=== PATIENT | female | born 1950 | race Caucasian/White ===

== ENCOUNTER 2016-12-19 17:10 | Emergency (ER) | payer OTHER, BC ==
[~2016-12-19] VITALS: Ht 170.2 cm; Wt 94.1 kg
[~2016-12-19 17:10] MED LIST: ALLEGRA; ASACOL400 MG PO; BENICAR20 MG PO; CELEBREX200 MG PO; CLONAZEPAM; EFFEXOR XR150 MG PO; HYDROCHLOROTH12.5 M1 PO; HYDROCODONE APAP; LIPITOR20 MG PO; NEXIUM40 MG PO; SINGULAIR10 MG PO
[2016-12-19 17:45] LABS: HEMATOCRIT 49.8 % (36.0-46.0); MCHC 33.3 G/DL (30.0-36.0); MCV 92.9 FL (83-99); MEAN PLAT.VOLUME 11.2 uM^3 (9.5-12.4); PLATELET COUNT 324 K/uL (156-360); RBC DIS.WIDTH-CV 13.4 % (11.8-14.6); RBC DIS.WIDTH-SD 46.3 % (39-53); RED BLOOD COUNT 5.36 M/uL (3.80-5.20); WHITE BLOOD COUNT 15.5 K/uL (4.1-10.2)
[2016-12-19 17:57] LABS: CHLORIDE 105 mEq/L (99-109); POTASSIUM 3.9 mEq/L (3.7-5.4); SODIUM 141 mEq/L (136-147)
[2016-12-19 17:58] LABS: GLUCOSE 121 mg/dL (70-99)
[2016-12-19 18:00] LABS: ANION GAP 12 MEQ/L (2-14)
[2016-12-19 18:02] LABS: GFR ESTIMATE (CALCULATED) > 59 mL/min/
[2016-12-19 18:03] LABS: UREA NITROGEN (BUN) 12 mg/dL (9-23)
[2016-12-19 18:09] LABS: TROP-I INTERPRETATION NEGATIVE; TROPONIN-I < 0.01 ng/mL (0.0-0.30)
[2016-12-19] MEDS ORDERED: PREDNISONE20 MG PO (19:27)
[2016-12-19] MEDS ORDERED: VENTOLIN HFA18 GM IH (19:27)
[2016-12-19] MEDS ORDERED: ZITHROMAX Z-PA250 MG PO (19:27)
[2016-12-19 20:01] VITALS: BP 158/80
== END 2016-12-19 20:03 | disposition home or self-care (01) ==
LOC: EME 17:10
DX: J06.9 Acute upper respiratory infection, unspecified (principal); J18.9 Pneumonia, unspecified organism; M79.7 Fibromyalgia; Z88.6 Allergy status to analgesic agent
CPT/HCPCS: 71020; 80048; 84484; 85027; 93005; 99281; 99284